=== PATIENT | male | born 1950 | race Caucasian/White ===

== ENCOUNTER 2017-05-01 06:37 | Day surgery (SDC) | payer MEDICARE ==
[~2017-05-01 06:37] MED LIST: DELTASONE10 MG PO; MUCINEX600 MG PO; PERCOCET 5/3251 TAB PO; TYLENOL EXTRA500 M1 PO; VALACYCLOVIR1000 MG PO; ZOFRAN ODT4 MG/UDTAB PO
[2017-05-01 07:37] LABS: HCT-HEMATOCRIT 39.7 % (36.0-53.5); HGB-HEMOGLOBIN 14.2 gm/dl (13.5-17.0); MCH (MEAN CORPUSCULAR HGB) 36.5 pg (28.0-32.0); MCHC MEAN CORPUSCULAR HGB CONC 35.8 % (32.0-36.0); MCV (MEAN CELL VOLUME) 102.1 fl (82.0-96.0); MEAN PLATELET VOLUME 10.1 cmc (9.4-12.4); NEUTROPHIL-AUTOMATED 2.7 tho/cmm (1.6-8.0); PLATELET COUNT 59 tho/cmm (150-450); RED BLOOD COUNT 3.89 mil/cmm (4.40-5.70); RED CELL DISTRIBUTION WIDTH 13.7 % (12.4-16.4); WHITE BLOOD COUNT 17.2 tho/cmm (4.0-10.0)
[2017-05-01 07:41] LABS: INR 0.9 INR (0.9-1.1); PROTHROMBIN TIME 10.7 SECONDS (9.0-13.6)
[2017-05-01 08:37] LABS: BAND % 2 % (0-20); BAND ABSOLUTE COUNT 0.3 tho/cmm (0-2.0); EOSINOPHIL % 1 % (0-7)
[2017-05-01 08:38] LABS: WBC MORPHOLOGY VARIANT LYMPHS
== END 2017-05-01 09:55 ==
LOC: SHSB 06:37
PROVIDERS: Radiology Diagnostic Radiology
PROC: 07DQ3ZX Extraction of Sternum Bone Marrow, Percutaneous Approach, Diagnostic (ICD-10-PCS; principal; 2017-05-01)
DX: C91.10 Chronic lymphocytic leukemia of B-cell type not having achieved remission (principal); D69.6 Thrombocytopenia, unspecified; D75.89 Other specified diseases of blood and blood-forming organs; Z88.8 Allergy status to other drugs, medicaments and biological substances; Z79.899 Other long term (current) drug therapy; E53.8 Deficiency of other specified B group vitamins
CPT/HCPCS: C1830; G0364; J2250; J3010; J7030